=== PATIENT | male | born 1975 | race Caucasian/White ===

== ENCOUNTER 2020-06-19 14:28 | Emergency (ER) | payer BC ==
[2020-06-19] MEDS ORDERED: Albuterol/Ipratropium 4 GM Inhalation Spray INH STA (15:07)
--- NOTE | 2020-06-19 15:11 | EDM.PDOC ---
ED HPI GENERAL MEDICAL PROBLEM - General Chief Complaint: Respiratory Problem Stated Complaint: SOB, CHILLS, BODY ACHES Time Seen by Provider: 06/19/20 14:57 Source of Information: Reports: Patient, RN Notes Reviewed History Limitations: Reports: No Limitations - History of Present Illness INITIAL COMMENTS - FREE TEXT/NARRATIVE: 44-year-old male presents emergency department with a complaint of fatigue and body ache, he states his been feeling ill for the last 5 days or so has not had any fevers planes of the body aches generalized ill feeling he notes he has been short of breath more than usual especially when he exerts himself no chest pain no nausea vomiting - Related Data Allergies Allergy/AdvReac Type Severity Reaction Status Date / Time No Known Allergies Allergy Verified 06/19/20 14:45 Home Meds: Home Meds ALPRAZolam [Alprazolam] 1 tab PO DAILY PRN 06/19/20 [History] ARIPiprazole [Abilify] 1 tab PO DAILY 06/19/20 [History] Dextroamphetamine/Amphetamine [Dextroamp-Amphetamin 20 mg Tab] 1 tab PO DAILY 06/19/20 [History] Gabapentin [Neurontin] 1 tab PO DAILY PRN 06/19/20 [History] Vortioxetine [Trintellix] 1 tab PO DAILY 06/19/20 [History] Past Medical History Respiratory History: Reports: Other (See Below) (Obstructive sleep apnea) Musculoskeletal History: Reports: Neck Pain, Chronic Psychiatric History: Reports: Anxiety, Depression Social & Family History - Tobacco Use Tobacco Use Status *Q: Never Tobacco User ED ROS GENERAL - Review of Systems Review Of Systems: See Below Constitutional: Reports: Fatigue. Denies: Fever, Chills HEENT: Reports: No Symptoms Respiratory: Reports: Shortness of Breath Cardiovascular: Reports: Dyspnea on Exertion. Denies: Chest Pain GI/Abdominal: Reports: No Symptoms : Reports: No Symptoms ED EXAM, GENERAL - Physical Exam Exam: See Below Exam Limited By: No Limitations General Appearance: Alert, WD/WN, No Apparent Distress Respiratory/Chest: No Respiratory Distress, Lungs Clear, Normal Breath Sounds, No Accessory Muscle Use, Chest Non-Tender Cardiovascular: Regular Rate, Rhythm, No Murmur GI/Abdominal: Soft, Non-Tender Course - Vital Signs Last Recorded V/S: Last Vital Signs Temp 97.9 F 06/19/20 15:45 Pulse 88 06/19/20 16:23 Resp 28 H 06/19/20 16:23 BP 135/80 06/19/20 16:23 Pulse Ox 97 06/19/20 16:23 - Orders/Labs/Meds Orders: Active Orders 24 hr Category Date Time Status RT Post Treatment Assessment [RC] Click to Edit Care 06/19/20 15:08 Active Chest 2V [CR] Stat Exams 06/19/20 15:07 Taken Isolation [COMM] Stat Oth 06/19/20 15:07 Ordered Labs: Laboratory Tests 06/19/20 06/19/20 06/19/20 Range/Units 15:23 15:23 15:23 WBC 3.2 L (4.5-11.0) K/uL RBC 4.46 (4.30-5.90) M/uL Hgb 13.8 (12.0-15.0) g/dL Hct 41.2 (40.0-54.0) % MCV 92 (80-98) fL MCH 31 (27-31) pg MCHC 34 (32-36) % Plt Count 197 (150-400) K/uL Neut % (Auto) 53 (36-66) % Lymph % (Auto) 35 (24-44) % Foard % (Auto) 10 H (2-6) % Eos % (Auto) 2 (2-4) % Baso % (Auto) 1 (0-1) % Sodium 142 (140-148) mmol/L Potassium 4.1 (3.6-5.2) mmol/L Chloride 105 (100-108) mmol/L Carbon Dioxide 27 (21-32) mmol/L Anion Gap 10.3 (5.0-14.0) mmol/L BUN 17 (7-18) mg/dL Creatinine 1.0 (0.8-1.3) mg/dL Est Cr Clr Drug Dosing 111.88 mL/min Estimated GFR (MDRD) > 60 (>60) Glucose 127 H (74-106) mg/dL Lactic Acid 0.8 (0.4-2.0) mmol/L Calcium 8.8 (8.5-10.1) mg/dL Total Bilirubin 0.4 (0.2-1.0) mg/dL Direct Bilirubin 0.14 (0.0-0.2) mg/dL Indirect Bilirubin 0.26 AST 43 H (15-37) U/L ALT 54 (12-78) U/L Alkaline Phosphatase 90 (46-116) U/L C-Reactive Protein 2.78 H (0.0-0.3) mg/dL Total Protein 6.7 (6.4-8.2) g/dL Albumin 3.4 (3.4-5.0) g/dL Globulin 3.3 (2.3-3.5) g/dL Albumin/Globulin Ratio 1.0 L (1.2-2.2) Procalcitonin ng/mL Influenza Type A RNA (NEGATIVE) RSV RNA (INAAT) (NEGATIVE) Influenza Type B RNA (NEGATIVE) SARS-CoV-2 RNA ([facility]) (NEGATIVE) 06/19/20 06/19/20 Range/Units 15:23 15:39 WBC (4.5-11.0) K/uL RBC (4.30-5.90) M/uL Hgb (12.0-15.0) g/dL Hct (40.0-54.0) % MCV (80-98) fL MCH (27-31) pg MCHC (32-36) % Plt Count (150-400) K/uL Neut % (Auto) (36-66) % Lymph % (Auto) (24-44) % Foard % (Auto) (2-6) % Eos % (Auto) (2-4) % Baso % (Auto) (0-1) % Sodium (140-148) mmol/L Potassium (3.6-5.2) mmol/L Chloride (100-108) mmol/L Carbon Dioxide (21-32) mmol/L Anion Gap (5.0-14.0) mmol/L BUN (7-18) mg/dL Creatinine (0.8-1.3) mg/dL Est Cr Clr Drug Dosing mL/min Estimated GFR (MDRD) (>60) Glucose (74-106) mg/dL Lactic Acid (0.4-2.0) mmol/L Calcium (8.5-10.1) mg/dL Total Bilirubin (0.2-1.0) mg/dL Direct Bilirubin (0.0-0.2) mg/dL Indirect Bilirubin AST (15-37) U/L ALT (12-78) U/L Alkaline Phosphatase (46-116) U/L C-Reactive Protein (0.0-0.3) mg/dL Total Protein (6.4-8.2) g/dL Albumin (3.4-5.0) g/dL Globulin (2.3-3.5) g/dL Albumin/Globulin Ratio (1.2-2.2) Procalcitonin < 0.05 ng/mL Influenza Type A RNA Negative (NEGATIVE) RSV RNA (INAAT) Negative (NEGATIVE) Influenza Type B RNA Negative (NEGATIVE) SARS-CoV-2 RNA ([facility]) Positive H (NEGATIVE) Meds: Medications Discontinued Medications Generic Name Dose Route Start Last Admin Trade Name Freq PRN Reason Stop Dose Admin Albuterol/Ipratropium 2 gm 06/19/20 15:07 06/19/20 15:35 Combivent Respimat INH 06/19/20 15:08 1 inhalation NOW STA Administration Departure - Departure Time of Disposition: 16:39 Disposition: Home, Self-Care 01 Condition: Fair Clinical Impression: COVID-19 - Discharge Information Instructions: COVID-19 Frequently Asked Questions, What You Should Know About COVID-19 to Protect Yourself and Others - CDC, COVID-19 Referrals: Megan Lang MD [Primary Care Provider] - Forms: ED Department Discharge Additional Instructions: Recommend self quarantine, symptomatic care, follow-up with primary care as needed call return to the emergency department worsening of symptoms Sepsis Event Note (ED) - Focused Exam Vital Signs: Vital Signs Temp Pulse Resp BP Pulse Ox 06/19/20 16:23 88 28 H 135/80 97 06/19/20 15:45 97.9 F 88 16 135/84 97 06/19/20 15:00 97.9 F 88 16 135/84 97 - My Orders Last 24 Hours: My Active Orders 06/19/20 15:07 Chest 2V [CR] Stat Isolation [COMM] Stat 06/19/20 15:08 RT Post Treatment Assessment [RC] Click to Edit - Assessment/Plan Last 24 Hours: My Active Orders 06/19/20 15:07 Chest 2V [CR] Stat Isolation [COMM] Stat 06/19/20 15:08 RT Post Treatment Assessment [RC] Click to Edit Plan: Assessment Acuity = acute Site and laterality = viral syndrome Etiology = COVID-19 Manifestations = cough, myalgia Location of injury = Home Lab values = WBC low at 3.2 consistent leukopenia lactic acid normal 0.8 CRP slightly elevated 2.78 procalcitonin is negative chest x-ray consistent with Covid type pattern official read radiologist pending Plan I did review lab work with him he is going to go home self quarantine symptomatic care follow-up primary care as needed This note was dictated using Lela voice recognition software please call with any questions on syntax or grammar.
[2020-06-19 16:28] LABS: CORONAVIRUS COVID-19 NAA POSITIVE (NEGATIVE)
--- NOTE | 2020-06-21 09:00 | CR ---
CHEST: 2 view CLINICAL HISTORY:Covid, SOB COMPARISON:None FINDINGS: There is patchy density in both lung bases. Some of this may be some atelectasis. Superimposed patchy pneumonic infiltrates are also suspected. Upper lung gallego are relatively clear. Heart size and pulmonary vascularity are normal. IMPRESSION: Patchy bilateral lung base airspace disease. This may represent a combination of pneumonic infiltrate and some patchy atelectasis If clinical symptomatology persists or worsens a repeat exam is recommended.
== END 2020-06-19 17:36 | disposition home or self-care (01) ==
LOC: JP.ED 14:28
DX: U07.1 COVID-19 (principal); Z79.899 Other long term (current) drug therapy
CPT/HCPCS: 0241U; 36415; 71046; 80048; 80076; 83605; 84145; 85025; 86140; 94640; 99285; A9270; 99284

== ENCOUNTER 2024-01-16 07:29 | Day surgery (SDC) | payer BC ==
[~2024-01-16 07:29] MED LIST: Midazolam 1 MG/ML 2 ML SDV ONE; Propofol 200 MG/20 ML SDV ONE; fentaNYL 100 MCG/2 ML SDV ONE
[2024-01-16] MEDS: Sodium Chloride 0.9% 1,000 ML IV SCH (08:11)
== END 2024-01-16 10:58 | disposition home or self-care (01) ==
LOC: JP.SDS 07:29
PROVIDERS: ATTEND Surgery
DX: Z12.11 Encounter for screening for malignant neoplasm of colon (principal); D12.5 Benign neoplasm of sigmoid colon; K21.9 Gastro-esophageal reflux disease without esophagitis
CPT/HCPCS: 00811; 45385; 88305; J2250; J2704; J3010; J7030